=== PATIENT | female | born 1985 | race Caucasian/White ===

== ENCOUNTER 2019-03-07 11:10 | Day surgery (SDC) | payer BC ==
[~2019-03-07 11:10] MED LIST: SEVOFLURANE 15 MIN
[2019-03-07] MEDS ORDERED: SOD CHLORIDE 0.9% 1,000 ML IV (12:00)
[2019-03-07] MEDS ORDERED: CEFAZOLIN 2 GM/50 ML (PMX) 50 ML IVPB (12:00)
[2019-03-07] MEDS ORDERED: PROCHLORPERAZINE 10 MG INJ IV (12:30)
[2019-03-07] MEDS ORDERED: HYDROmorphONE 1 MG/5 ML IV SYRINGE IV ×2 (12:30)
[2019-03-07] MEDS ORDERED: FENTAnyl 50 MCG/ML VIAL IV ×2 (12:30)
[2019-03-07] MEDS ORDERED: DIPHENHYDRAMINE 50 MG INJ IV (12:30)
[2019-03-07] MEDS ORDERED: ROPIVACAINE 0.5 % 30 ML VIAL (12:38)
[2019-03-07] MEDS ORDERED: MIDAZOLAM 1 MG/ML 2 ML INJ (12:39)
[2019-03-07] MEDS ORDERED: FENTAnyl 50 MCG/ML VIAL (12:39)
[2019-03-07] MEDS ORDERED: LIDOCAINE 2% (SDV) 5 ML INJ (12:57)
[2019-03-07] MEDS ORDERED: ROCURONIUM 50 MG INJ (12:57)
[2019-03-07] MEDS ORDERED: DEXAMETHASONE 4 MG/ML 5 ML INJ (12:57)
[2019-03-07] MEDS ORDERED: ONDANSETRON 4 MG INJ (12:57)
[2019-03-07] MEDS ORDERED: CEFAZOLIN 1 GM INJ (12:57)
[2019-03-07] MEDS ORDERED: PROPOFOL 20 ML (12:57)
[2019-03-07] MEDS ORDERED: FAMOTIDINE 20 MG INJ (12:57)
[2019-03-07] MEDS ORDERED: SUCCINYLCHOLINE CHLORIDE 100 MG/5 ML SYG IV (12:57)
[2019-03-07] MEDS ORDERED: EPHEDrine 25 MG/5 ML SYG (13:18)
[2019-03-07] MEDS ORDERED: GLYCOPYRROLATE 0.4 MG INJ (13:21)
[2019-03-07] MEDS ORDERED: NEOSTIGMINE 3 MG/3 ML SYRINGE (13:21)
[2019-03-07] MEDS ORDERED: KETOROLAC 30 MG INJ (13:21)
[2019-03-07] MEDS ORDERED: HYDROCODONE/APAP (5/325) TAB PO (13:30)
[2019-03-07] MEDS: FENTAnyl 50 MCG/ML VIAL IV ×2 (13:45→13:48)
[2019-03-07] MEDS: HYDROmorphONE 1 MG/5 ML IV SYRINGE IV (13:46)
[2019-03-07] MEDS: ONDANSETRON 4 MG INJ IV (13:48)
[2019-03-07] MEDS: MEPERIDINE 25 MG INJ IV (14:41)
[2019-03-07] MEDS: OXYCODONE/ACETAMINOPHEN (5/325) TAB PO (14:57)
== END 2019-03-07 16:34 | disposition home or self-care (01) ==
LOC: SDS 11:10
DX: K80.10 Calculus of gallbladder with chronic cholecystitis without obstruction (principal)
CPT/HCPCS: 47562; 84703; 88304

== ENCOUNTER 2019-03-08 18:39 | Emergency (ER) | payer BC ==
[2019-03-08] MEDS: HYDROmorphONE 1 MG/ML SYG IV (19:04)
[2019-03-08] MEDS: ONDANSETRON 4 MG INJ IV (19:04)
[2019-03-08] MEDS: SOD CHLORIDE 0.9% 1,000 ML IV (19:04)
[2019-03-08 19:06] LABS: ADD MAN DIFF? NO
[2019-03-08 19:09] LABS: BASOPHILS % 0.4 % (0.0-2.0); EOSINOPHILS # 0.1 10^3/ul (0.0-0.5); EOSINOPHILS % 0.5 % (0.0-7.0); LYMPHOCYTES # 3.9 10^3/ul (0.8-2.9); LYMPHOCYTES % 35.3 % (15.0-51.0); MEAN CORPUSCULAR HEMOGLOBIN 28.1 pg (29.0-33.0); MEAN CORPUSCULAR HGB CONC 31.4 g/dl (32.0-37.0); MEAN CORPUSCULAR VOLUME 89.3 fl (82.0-101.0); MEAN PLATELET VOLUME 9.3 fl (7.4-10.4); MONOCYTE # 0.6 10^3/ul (0.3-0.9); MONOCYTES % 5.3 % (0.0-11.0); NEUTROPHIL # 6.4 10^3/ul (1.6-7.5); PLATELET COUNT 340 10^3/UL (140-415); RED BLOOD COUNT 3.92 10^6/ul (4.20-5.40); RED CELL DISTRIBUTION WIDTH 13.5 % (11.5-14.5)
[2019-03-08 19:29] LABS: ALANINE AMINOTRANSFERASE 68 IU/L (13-69); ALBUMIN 4.1 g/dl (3.3-4.9); ALBUMIN/GLOBULIN RATIO 1.17; ALKALINE PHOSPHATASE 75 IU/L (42-121); ANION GAP 10 (5-13); ASPARTATE AMINO TRANSFERASE 82 IU/L (15-46); BILIRUBIN,INDIRECT 0.1 mg/dl (0-1.1); BILIRUBIN,TOTAL 0.1 mg/dl (0.2-1.3); BLOOD UREA NITROGEN 10 mg/dl (7-20); CALCIUM 8.9 mg/dl (8.4-10.2); CARBON DIOXIDE 25 mmol/L (21-31); CHLORIDE 106 mmol/L (97-110); CREATININE 0.65 mg/dl (0.44-1.00); Estimated GFR > 60 mL/min (>60); GLUCOSE 102 mg/dl (70-220); INR 0.89; LIPASE 30 U/L (23-300); POTASSIUM 3.8 mmol/L (3.5-5.1); PROTIME 12.1 Sec (11.9-14.9); PT RATIO 0.9; SODIUM 141 mmol/L (135-144); TOTAL PROTEIN 7.6 g/dl (6.1-8.1)
[2019-03-08 19:30] LABS: PARTIAL THROMBOPLASTIN TIME 25.8 Sec (23.0-35.0)
[2019-03-08 20:04] LABS: URINE PH (Dip) POC 6.5 (5.0-8.5)
[2019-03-08 20:04] LABS: URINE BLOOD (Dip) POC Negative (NEGATIVE); URINE GLUCOSE (Dip) POC Negative (NEGATIVE); URINE KETONES (Dip) POC Negative (NEGATIVE); URINE LEUKOCYTE EST (Dip) POC 2+ (NEGATIVE); URINE NITRITE (Dip) POC Negative (NEGATIVE); URINE TOTAL PROTEIN POC Negative (NEGATIVE)
[2019-03-08] MEDS: SOD CHLORIDE 0.9% 100 ML (20:11)
[2019-03-08] MEDS: IOHEXOL 300MG/ML 150 ML BTL (20:11)
[2019-03-08] MEDS: HYDROmorphONE 0.5 MG/0.5 ML SYG IV (20:24)
== END 2019-03-08 21:21 | disposition home or self-care (01) ==
LOC: E/R 18:39
DX: G89.18 Other acute postprocedural pain (principal); R10.84 Generalized abdominal pain
CPT/HCPCS: 36415; 74177; 80053; 81003; 81025; 83690; 84703; 85025; 85610; 85730; 96374; 96375; 96376; 99285-25

== ENCOUNTER 2019-03-20 20:47 | Emergency (ER) | payer SELFPAY, BC | END 2019-03-20 22:54 | disposition left against medical advice (07) | LOC: E/R 20:47 | DX: Z53.21 Procedure and treatment not carried out due to patient leaving prior to being seen by health care provider (principal) ==

== ENCOUNTER 2019-05-30 19:02 | Emergency (ER) | payer SELFPAY, BC | END 2019-05-31 02:20 | disposition left against medical advice (07) | LOC: FTE 05-31 02:20 | DX: Z53.21 Procedure and treatment not carried out due to patient leaving prior to being seen by health care provider (principal) ==

== ENCOUNTER 2019-05-31 08:24 | Emergency (ER) | payer BC ==
[2019-05-31 09:03] LABS: ADD MAN DIFF? NO
[2019-05-31 09:16] LABS: BASOPHIL # 0.1 10^3/ul (0.0-0.1); BASOPHILS % 0.6 % (0.0-2.0); EOSINOPHILS # 0.1 10^3/ul (0.0-0.5); EOSINOPHILS % 0.9 % (0.0-7.0); HEMOGLOBIN 11.7 g/dl (12.0-16.0); LYMPHOCYTES # 2.4 10^3/ul (0.8-2.9); LYMPHOCYTES % 29.7 % (15.0-51.0); MEAN CORPUSCULAR HEMOGLOBIN 28.1 pg (29.0-33.0); MEAN CORPUSCULAR HGB CONC 32.5 g/dl (32.0-37.0); MEAN CORPUSCULAR VOLUME 86.5 fl (82.0-101.0); MEAN PLATELET VOLUME 9.2 fl (7.4-10.4); MONOCYTE # 0.5 10^3/ul (0.3-0.9); MONOCYTES % 6.1 % (0.0-11.0); NEUTROPHIL # 5.1 10^3/ul (1.6-7.5); NEUTROPHILS % 62.3 % (39.0-77.0); PLATELET COUNT 360 10^3/UL (140-415); RED BLOOD COUNT 4.16 10^6/ul (4.20-5.40); RED CELL DISTRIBUTION WIDTH 13.5 % (11.5-14.5)
[2019-05-31 09:16] LABS: WHITE BLOOD COUNT 8.2 10^3/ul (4.8-10.8)
[2019-05-31 09:27] LABS: ADD UMIC YES; UR ASCORBIC ACID 40 mg/dL (NEGATIVE); UR BACTERIA FEW /HPF (NONE SEEN); UR BILIRUBIN (Dip) NEGATIVE (NEGATIVE); UR BLOOD (Dip) NEGATIVE (NEGATIVE); UR CLARITY CLOUDY (CLEAR); UR COLOR YELLOW (YELLOW); UR GLUCOSE (Dip) NEGATIVE (NEGATIVE); UR KETONES (Dip) TRACE mg/dL (NEGATIVE); UR LEUKOCYTE ESTERASE (Dip) 3+ Leu/ul (NEGATIVE); UR MUCUS MODERATE /HPF (NONE SEEN); UR NITRITE (Dip) NEGATIVE (NEGATIVE); UR RBC 26 /HPF (0-5); UR SPECIFIC GRAVITY (Dip) 1.025 (1.003-1.030); UR SQUAMOUS EPITHELIAL CELL MANY /HPF (FEW); UR TOTAL PROTEIN (Dip) NEGATIVE (NEGATIVE); UR UROBILINOGEN (Dip) NEGATIVE (NEGATIVE); UR WBC 33 /HPF (0-5)
[2019-05-31 10:29] LABS: ABO/RH TYPE 1 1
== END 2019-05-31 11:13 | disposition home or self-care (01) ==
LOC: FTE 08:24
DX: O23.41 Unspecified infection of urinary tract in pregnancy, first trimester (principal); O02.1 Missed abortion
CPT/HCPCS: 36415; 76801; 81001; 84702; 85025; 86900; 86901; 99284-25

== ENCOUNTER 2019-07-27 16:44 | Emergency (ER) | payer BC | END 2019-07-27 18:37 | disposition home or self-care (01) | LOC: FTE 16:44 | DX: O99.512 Diseases of the respiratory system complicating pregnancy, second trimester (principal); J00 Acute nasopharyngitis [common cold]; Z3A.14 14 weeks gestation of pregnancy | CPT/HCPCS: 99283; Z7502 ==